=== PATIENT | male | born 1950 | race Caucasian/White ===

== ENCOUNTER → 2018-03-05 | Outpatient (CLI) | payer OTHER ==
[~2018-03-05] VITALS: Ht 172.7 cm; Wt 80.3 kg
[~2018-03-05] MED LIST: COREG12.5 MG PO; COZAAR 25 MG TA25 M2 PO; NORVASC10 MG PO
[2018-03-05 08:43] VITALS: BP 108/64
[2018-03-05 09:07] LABS: ABSOLUTE NEUTROPHILS 2.1 thou/uL (1.4-8.2); EOSINOPHILS 1.8 % (0.0-3.0); HEMATOCRIT 41.2 % (42.0-52.0); HEMOGLOBIN 14.1 gm/dL (14.0-18.0); LYMPHOCYTES 30.5 % (24.0-44.0); MCHC 34.2 g/dL (28.0-37.0); MCV 87.9 fL (80.0-100.0); MONOCYTES 11.4 % (1.0-8.0); PLATELET COUNT 223 thou/uL (150-400); POLYS 55.3 % (36.0-66.0); RBC 4.69 mil/uL (4.50-6.00); RDW 13.5 % (10.5-14.5); WBC 3.7 thou/uL (4.0-11.0)
[2018-03-05 09:13] LABS: CALCIUM 9.2 mg/dL (8.5-10.1); CREATININE 1.9 mg/dL (0.7-1.3); POTASSIUM 4.3 mmol/L (3.5-5.1)
[2018-03-05 09:18] LABS: PROTIME 10.3 Seconds (9.3-11.4)
[2018-03-05 09:46] VITALS: BP 124/68
[2018-03-05 09:50] VITALS: BP 117/64
[2018-03-05 09:55] VITALS: BP 114/56
[2018-03-05 10:00] VITALS: BP 108/58
--- NOTE | 2018-03-10 13:08 | PATH ---
[facility] [address] [place] [address] PATHOLOGY RPT PROCEDURE Name: JONATAN ALBERTS May Room #: REG CLKirti Nava.#: [id number] Admission: 03/05/18 Date of : 52 Discharge: Report #: [id number] Path Case #: [id number] [facility] Accession Number: [id number] . 01 Material submitted: . LT RENAL . 01 Clinical history: . CKD . 02 Diagnosis: Special studies report received from [facility] [employer], [address] [place] [address], [place] [address], on case [id number], labeled with their number [id number], dated 03/06/2018. . Specimen submitted: By Paxton Gabriel MD For Kidney, biopsy . 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 . Arteriosclerosis, Mild. . Comment: The biopsy findings are most consistent with mild arterionephrosclerosis. There is no evidence of immune complex-mediated or paraprotein-associated kidney disease. . Clinical History: The patient is a 67 year-old male with chronic kidney disease. . Gross Description: Received from [facility] via [facility] ([place], [place]) are two specimen bottles, one contains formalin and the other contains Luigi's fixative. They are labeled with the patient's name, (Jonatan Alberts). . Received in formalin is one piece of delatorre tissue measuring 2.5 x 0.1 x 0.1 cm (with fatty ends, bisected and dissected). Two ends are submitted for electron microscopy and the remainder of the tissue is submitted in its entirety for light microscopy. . Received in Luigi's fixative is one piece of delatorre tissue measuring 2.2 x 0.1 x 0.1 cm (with a fatty end). The specimen is submitted in its entirety for immunofluorescence microscopy. . Microscopic Description: LIGHT MICROSCOPY: [facility] [address] [place] [address] PATHOLOGY RPT PROCEDURE Name: JONATAN ALBERTS Room #: REG CLI [facility].#: [id number] Admission: 03/05/18 Date of : 52 Discharge: Report #: [id number] Path Case #: [id number] . Sections of kidney are represented by approximately 25% cortex and 75% medulla. Uyp to seven glomeruli are present, one of which is globally sclerotic. The glomeruli are minimally enlarged and show no significant mesangial matrix expansion or hypercellularity. There is no segmental sclerosis, fibrinoid necrosis, or crescent formation. The glomerular basement membranes are without holes, spikes, or double contours on silver stain. There is very mild interstitial inflammation. The tubular epithelium is largely unremarkable. There are no atypical tubular casts. The arterioles are unremarkable. Arteries show mild intimal fibrosis. There is no arteritis present. A [place] red stain for amyloid is negative. Toluidine blue-stained sections prepared for electron microscopy show renal cortex and medulla but no glomeruli despite multiple additional levels through the tissue blocks. . Standard of care requirements for proper analysis of renal biopsies mandates serial sections, and PAS, Unger silver, trichrome and SMMT stains at multiple levels. PAS stains are used to evaluate various aspects of the glomerular, tubular, and vascular basement membranes. Unger silver stains are used to evaluate thickening, reduplication, "spiking" or "bubbling" of the glomerular basement membrane. Toluidine blue stained sections highlight glomerular basement membranes and demonstrates unusual types of deposits. It also reveals details of tubular epithelial cells and aids in the analysis of vascular lesions. Yolande trichrome stains are used to evaluate interstitial fibrosis and basement membrane deposits. The SMMT stain helps evaluate basement membrane changes, immune deposits and tubulointerstitial scarring. Controls are routinely run on all special stains and are verified for acceptability. A review of the technical quality of routine slides is made before results are reported. . . IMMUNOFLUORESCENCE: The sections are stained for IgG, IgM, IgA, C3, C1q, albumin, fibrinogen, and kappa and lambda light chains. Up to seventeen glomeruli are present for evaluation including three globally sclerotic. All stains negative in glomeruli. There is no significant extraglomerular staining. [place] and lambda stain equally throughout the tubulointerstitium. . Positive and negative controls are run on all immunofluorescent stains and are verified for acceptability before results are reported. Internal antigens serve as positive controls. . ELECTRON MICROSCOPY: Two blocks are prepared. No intact glomeruli are available for ultrastructural examination. . Special procedures including immunofluorescence and electron microscopy correlate with the light microscopy findings. [address] [address] PATHOLOGY RPT PROCEDURE Name: JONATAN ALBERTS Room #: REG TREMAINE Peters#: [id number] Admission: 03/05/18 Date of : 52 Discharge: Report #: [id number] Path Case #: [id number] . Note: Some of the tests reported here may have been developed and performance characteristics determined by [facility]. They have not been cleared or approved by the U.S. Food and Drug Administration (FDA). The FDA does not require this test to go through premarket FDA review. This test is used for clinical purposes. It should not be regarded as investigational or for research. [facility] is certified under the Clinical Laboratory Improvement Amendments of 1988 (CLIA) as qualified to perform high complexity clinical laboratory testing. . Physician/Physician's office called on 03/06/2018 at 3:53 PM Central. . *I have reviewed the clinical history, the pertinent gross findings, all microscopic materials, discussed the case with the clinician when appropriate, and have rendered the final diagnosis. . . Final Diagnosis performed by Roslyn Pate M.D. Electronically signed 03/06/2018 5:01:06 PM . . A complete copy of the report is on file. . Professional and technical services performed by [facility] at [address] [place] [address], [address], [facility]. . ([facility] 03/09/2018) . AZJ/03/09/2018 . 02 Electronically signed: . Maryjane Haskins MD, Pathologist NPI- [id number] . 01 Gross description: . The specimen is received in formalin, labeled "Jonatan Alberts, left kidney general biopsy inferior". Received is a single needle core of pale delatorre soft tissue measuring 2.9 cm in length, with each measuring 0.1 cm in diameter. The specimen is forwarded to an outside laboratory for further processing. . Also received is a container of Luigi's fixative, labeled "Jonatan Alberts, left renal general biopsy". Received is a single needle core of pale delatorre soft tissue measuring 1.7 cm in length, with each measuring 0.1 cm in diameter. The specimen is forwarded to an outside laboratory for further [facility] [place] [address] PATHOLOGY RPT PROCEDURE Name: JONATAN ALBERTS Room #: REG CLI [facility].#: [id number] Admission: 03/05/18 Date of : 52 Discharge: Report #: [id number] Path Case #: [id number] processing. (CAA; 03/05/2018) QAC/QAC . 02 Pathologist provided ICD-10: N18.9 . 02 CPT . 247541 Specimen Comment: A courtesy copy of this report has been sent to Specimen Comment: [phone], , . Specimen Comment: Report sent to ,DR GABRIEL / DR GRIMES Specimen Comment: A duplicate report has been generated due to demographic updates. Performed at: 01 [facility] [address] [facility] [address], [place] [id number] MD Jerald Christie MD Phone: [phone] Performed at: [address] [place] [address] [place], [place] [id number] MD Maryjane Haskins MD Phone: [phone]
== END | disposition home or self-care (01) ==
LOC: SPEC 08:19
PROVIDERS: Radiology Diagnostic Radiology
DX: I12.9 Hypertensive chronic kidney disease with stage 1 through stage 4 chronic kidney disease, or unspecified chronic kidney disease (principal); N18.4 Chronic kidney disease, stage 4 (severe); Z87.442 Personal history of urinary calculi; Z79.899 Other long term (current) drug therapy; Z98.890 Other specified postprocedural states